=== PATIENT | female | born 1965 | race Caucasian/White ===

== ENCOUNTER 2016-10-02 23:53 | Emergency (ER) | payer OTHER, MEDICARE ==
[2016-10-03 00:15] VITALS: BP 183/95; BMI 34.2
[2016-10-03] MEDS ORDERED: TORADOL 60 MG VIAL IM ONE (01:11)
[2016-10-03] MEDS ORDERED: TORADOL 60 MG VIAL ONE (01:12)
--- NOTE | 2016-10-03 01:12 | DR.GENAD ---
HPI - PCP Primary Care Physician: kristy - Complaint/Symptoms Chief Complaint Doctors Comments: Patient admits to seeing her pcp today, medication given for BP, congestion and stomach, Rx called into pharmacy but has not gotten them. She has an appointment for tomorrow for blood work ordered by Dr Bowling. Chief Complaint:: high blood pressure( 154/110). headache, numbness in left arm , left leg, and tingling on left side of face. patient states," it happens often i have problems with the numbness," feels congested.fells like stomach is hard Self Treatment fo Chief Complaint: blood pressure medicines tonight. patient too two blood pressure pills earlier and too a half of tablet about an hour ago patient states " i think there coreg 12.5mg." - Source History Provided: Patient - Mode of Arrival Mode of Arrival: Ambulatory - Timing Onset of Chief Complaint: 09/15/16 PMH - PMH Past Medical History: Yes Past Medical History: Anxiety, Arthritis, Asthma, Depression, Diabetes, Dyslipidemia, GERD, Hypertension, PUD Past Medical History Comment: hernia Past Surgical History: Yes Surgical History: Cholecystectomy, [employer] TECH Surgery Past Surgical History Comment: high hernia repair, uterus removed,esophogus stretched x5 carpal tunnel surgery x2 stents in right wrist/hand - Family History History of Family Medical Conditions: Yes Family Medical History: Diabetes Mellitus, Cancer, [place], Coronary Artery Disease, Sudden Cardiac , Hypertension - Social History Does patient currently use any type of tobacco product: Yes Have you used tobacco products in the last 12 months: Yes Type of Tobacco Use: Cigarettes How many years tobacco product used: 30 Does any household member use tobacco: Yes Alcohol Use: None Do you use any recreational Drugs:: No Lives With: Significant Other Lives Where: Home - infectious screening In the last 2 months have you had wt loss of >10#?: NO Have you had fever, night sweats or hemotysis?: No Have you traveled outside the country in the last 6 months?: No Isolation: Standard ROS - Review of Systems Constitutional: negative: Diaphoresis Eyes: No Symptoms Reported ENTM: No Symptoms Reported Respiratoy: No Symptoms Reported Cardiovascular: No Symptoms Reported Gastrointestinal/Abdominal: No Symptoms Reported Genitourinary: No Symptoms Reported Neurological: No Symptoms Reported Musculoskeletal: No Symptoms Reported Integumentary: No Symptoms Reported Hematologic/Lymphatic: No Symptoms Reported Endocrine: No Symptoms Reported Psychiatric: No Symptoms Reported All Other Systems: Reviewed and Negative PE - Vital Signs Vitals: Temperature 98.0 F Pulse Rate 79 Respiratory Rate 20 Blood Pressure [Right Arm] 130/85 Blood Pressure 183/95 O2 Sat by Pulse Oximetry 96 - General General Appearance: Alert, In No Apparent Distress - Head Head Exam: Normal Inspection, Atraumatic - Eyes Eye exam: Normal Appearance, PERRL, EOMI - ENT ENT Exam: Normal Exam External Ear Exam: Normal External Inspection TM/Canal Exam: Bilateral Normal Nose Exam: Normal Nose Exam Mouth Exam: Normal Inspection Throat Exam: Normal Inspection - Neck Neck Exam: Normal Inspection - Chest Chest Inspection: Normal Inspection - Respiratory Respiratory Exam: Normal Lung Sounds Bilat Respiratory Exam: Bilateral Clear to Auscultation - Cardiovascular Cardiovascular Exam: Regular Rate - Abdominal Exam Abdominal Exam: Normal Inspection Abdominal Tenderness: negative: RUQ, RLQ, LUQ, LLQ, Epigastrium, Suprapubic, Diffuse, Mild, Moderate, Severe, Other - Extremities Extremities Exam: Normal Inspection - Back Back Exam: Normal Inspection, Full ROM - Neurologic Neurological Exam: Alert, Oriented X3, CN II-XII Intact - Psychiatric Psychiatric Exam: Normal Affect - Skin Skin Exam: Warm, Dry, Intact - Diagnosis Discharge Problem: Headache Qualifiers: Headache type: unspecified Headache chronicity pattern: chronic headache Intractability: not intractable Qualified Code(s): R51 - Headache - Discharge Plan Condition: Stable - Follow ups/Referrals Follow ups/Referrals: MARISA BOWLING [Primary Care Provider] - 3 days - Instructions
== END 2016-10-03 01:23 | disposition home or self-care (01) ==
LOC: ER 23:53
DX: R51 Headache (principal)
CPT/HCPCS: 96372; 99282; J1885

== ENCOUNTER → 2017-03-13 | Outpatient (CLI) | payer OTHER, MEDICARE ==
--- NOTE | 2017-03-16 15:06 | MRI ---
MRI thoracic spine without contrast Indication: Mid back pain Technique: Multiplanar, multi sequence imaging of the thoracic spine without IV contrast administrati on. Findings: There is no fracture spondylolisthesis of the thoracic spine. Bone marrow signal is preserv ed throughout the thoracic spine. No disc desiccation. No prevertebral or paraspinal soft tissue swel ling. There is mild disc osteophyte complex at C3-4 causing mild spinal canal stenosis without bony neural foraminal narrowing. There is mild disc osteophyte complex at T7-8 causing mild spinal canal stenosis without bony neural foraminal narrowing. There is mild disc osteophyte complex at T8-9 causes mild spinal canal stenosis without bony neural f emoral stenosis. At no level is there significant mass effect or compression on the thoracic cord. Impression: 1. Mild multilevel disc osteophyte complexes causes mild multilevel spinal canal narrowing; however, there is no significant bony neural foraminal stenosis or mass effect on the thoracic or. Normal sign al is noted throughout the thoracic cord. Reported By:
== END ==
LOC: RAD 08:28
PROVIDERS: ATTEND Specialist
DX: M54.6 Pain in thoracic spine (principal); M25.78 Osteophyte, vertebrae
CPT/HCPCS: 72146

== ENCOUNTER → 2017-04-02 | Outpatient (CLI) | payer OTHER, MEDICARE ==
--- NOTE | 2017-04-03 11:51 | MRI ---
MRI SPINE LUMBAR WITHOUT CONTRAST CLINICAL HISTORY: 52-year-old female with chronic low back pain. COMPARISON: None available at time dictation. Technique: Multiplanar, multisequence MRI images of the lumbar spine were obtained without the admin istration of contrast. FINDINGS: The most caudad, fully-formed intervertebral disc will be labeled L5-S1 for the purpose of this dictation. Straightening of the lumbar lordosis as imaged There is normal lumbar lordosis. Align ment is maintained. Large Schmorl's node superior endplate L1. Vertebral body heights are otherwise p reserved. Type 2 endplate changes throughout the imaged lumbar spine with mixed type 1 and type 2 end plate changes L1-L2 and L3-L4 anteriorly. Intervertebral disc height and signal are preserved. Cord s ignal is normal. The conus medullaris is normal in signal characteristics and morphology and terminat es at the L1-2 level. T11-T12: Imaged in the sagittal plane only without central canal or neural foraminal stenosis. T12-L1: No central canal or neural foraminal stenosis. L1-L2: Small symmetric disc bulge with mild facet arthropathy without central canal or neural foramin al stenosis. L2-L3: Moderate symmetric disc bulge and facet arthropathy without central canal or neural foraminal stenosis. L3-L4: Large asymmetric disc bulge with a left foraminal component and annular fissure at the foramin al level on the left with impingement and flattening of the ventral aspect of the exiting left L3 ner ve root. No central canal or significant neural foraminal stenosis otherwise. L4-L5: Large symmetric disc bulge with central annular fissure with severe facet arthropathy and mild thickening of the ligamentum flavum without central canal stenosis. Moderate to severe bilateral sub articular recess and moderate right with mild left neural foraminal stenosis. There is flattening of the ventral aspect of the exiting right L4 nerve root. L5-S1: Moderate symmetric disc bulge with severe facet arthropathy without central canal stenosis. Th ere is flattening of the ventral dorsal aspect of the exiting L5 nerve roots bilaterally. Paraspinous soft tissues are unremarkable. IMPRESSION: 1. Multilevel disc degeneration and spondyloarthropathy with areas of active degenerative disc change at multiple levels of neural foraminal stenosis with nerve root impingement/deformity, most severe L 4-S1. 2. See level by level descriptions above. Reported By:
--- NOTE | 2017-04-03 11:55 | MRI ---
MRI SPINE CERVICAL WITHOUT CONTRAST CLINICAL HISTORY: 52-year-old female with chronic neck pain. COMPARISON: None. Technique: Multiplanar, multisequence MRI images of the cervical spine were obtained without the adm inistration of intravenous contrast. FINDINGS: Straightening of the cervical lordosis as imaged. Alignment is maintained. The craniocervic al junction is normal. Vertebral body and disc space height are maintained. Vertebral marrow and inte rvertebral disc space signal are normal. Subtle patchy hyperintensity within the anterior cord at C5 -C6 with remaining cord signal normal. The visualized posterior fossa structures are normal. C2-C3: No central canal or neural foraminal stenosis. C3-C4: No central canal or neural foraminal stenosis. C4-C5: Shallow broad-based disc osteophyte complex without central canal or neural foraminal stenosis . C5-C6: Broad-based disc osteophyte complex with a right central component that impinges and flattens the right ventral cord with patchy hyperintense signal within the ventral cord without infarction. Ce ntral canal measures 8.3 mm. No significant neural foraminal stenosis. C6-C7: Broad-based disc osteophyte complex with a left central component that mildly flattens the lef t ventral cord. No cord signal change. Central canal measures 10.3 mm. No neural foraminal stenosis. C7-T1: No central canal or neural foraminal stenosis. Paraspinous soft tissues are unremarkable. IMPRESSION: 1. Multilevel disc degeneration and spondyloarthropathy most severe at C5-C6 with right ventral cord flattening and patchy hyperintensity consistent with edema/myelomalacia. 2. See level by level descriptions above. Reported By:
== END ==
LOC: RAD 12:58
PROVIDERS: ATTEND Psychiatry & Neurology Neurology
DX: M54.16 Radiculopathy, lumbar region (principal); M47.812 Spondylosis without myelopathy or radiculopathy, cervical region
CPT/HCPCS: 72141; 72148

== ENCOUNTER 2017-04-20 01:19 | Emergency (ER) | payer OTHER, MEDICARE ==
[2017-04-20 01:35] VITALS: BMI 32.8
--- NOTE | 2017-04-20 02:04 | DR.GENAD ---
HPI - PCP Primary Care Physician: DR. BOWLING - Complaint/Symptoms Chief Complaint Doctors Comments: Patient presents with complaint of feels like something, she also complains of left injuinal pain radiating down left leg. Patient states that she has gone through pain management clinic without relief of back and Chief Complaint:: HURTING IN CHEST UP TO THROAT ALONG ESOPHAGUS. PATIENT HAS HAD ESOPHAGUS STRETCHED IN THE PAST. FEELS LIKE SOMETHING IS STUCK IN HER THROAT. FRANCINE ALSO HURTING IN THE LEFT GROIN AREA Self Treatment fo Chief Complaint: THROAT AND MID CHEST STARTED YESTERDAY MORNING AND GROIN HAS BEEN HURTING FO ABOUT A WEEK - Source History Provided: Patient - Mode of Arrival Mode of Arrival: Ambulatory - Timing Onset of Chief Complaint: 04/19/17 PMH - PMH Past Medical History: Yes Past Medical History: Anxiety, Arthritis, Asthma, Depression, Diabetes, Dyslipidemia, GERD, Hypertension, PUD Past Medical History Comment: BACK TROUBLE Past Surgical History: Yes Surgical History: Cholecystectomy, [employer] Surgery, Tonsillectomy Past Surgical History Comment: STRETCHED ESOPHAGUS 6 TIMES, CARPAL TUNNEL SURGERY - Family History History of Family Medical Conditions: Yes Family Medical History: Diabetes Mellitus, Cancer, [place], Coronary Artery Disease, Sudden Cardiac , Hypertension - Social History Does patient currently use any type of tobacco product: Yes Have you used tobacco products in the last 12 months: Yes Type of Tobacco Use: Cigarettes How many years tobacco product used: 30 Does any household member use tobacco: Yes Alcohol Use: None Do you use any recreational Drugs:: No Lives With: Friend Lives Where: Home - infectious screening In the last 2 months have you had wt loss of >10#?: NO Have you had fever, night sweats or hemotysis?: No Have you traveled outside the country in the last 6 months?: No Isolation: Standard ROS - Review of Systems Constitutional: No Symptoms Reported Eyes: No Symptoms Reported ENTM: No Symptoms Reported Respiratoy: No Symptoms Reported Cardiovascular: No Symptoms Reported Gastrointestinal/Abdominal: No Symptoms Reported Genitourinary: No Symptoms Reported Neurological: No Symptoms Reported Musculoskeletal: Hip (left) Integumentary: No Symptoms Reported Hematologic/Lymphatic: No Symptoms Reported Endocrine: No Symptoms Reported Psychiatric: No Symptoms Reported All Other Systems: Reviewed and Negative PE - Vital Signs Vitals: Temperature 98.0 F Pulse Rate 72 Respiratory Rate 20 Blood Pressure [Right Arm] 130/85 Blood Pressure 125/71 O2 Sat by Pulse Oximetry 97 - General Limitations: No Limitations General Appearance: Alert, In No Apparent Distress - Head Head Exam: Normal Inspection, Atraumatic - Eyes Eye exam: Normal Appearance, PERRL, EOMI - ENT ENT Exam: Normal Exam, Normal Oropharynx External Ear Exam: Normal External Inspection TM/Canal Exam: Bilateral Normal Nose Exam: Normal Nose Exam Mouth Exam: Normal Inspection Throat Exam: Normal Inspection - Neck Neck Exam: Normal Inspection, Full ROM - Chest Chest Inspection: Normal Inspection, Symmetric Chest Wall Rise - Respiratory Respiratory Exam: Normal Lung Sounds Bilat Respiratory Exam: Bilateral Clear to Auscultation - Cardiovascular Cardiovascular Exam: Regular Rate, Normal Rhythm - Abdominal Exam Abdominal Exam: Normal Inspection, Normal Bowel Sounds Abdominal Tenderness: negative: RUQ, RLQ, LUQ, LLQ, Epigastrium, Suprapubic, Diffuse, Mild, Moderate, Severe, Other - Extremities Extremities Exam: Normal Inspection, Tenderness (left inguinal area) - Back Back Exam: Normal Inspection, Tenderness (lumbar spine) - Neurologic Neurological Exam: Alert, Oriented X3, CN II-XII Intact - Psychiatric Psychiatric Exam: Normal Affect, Normal Mood - Skin Skin Exam: Warm, Dry, Intact Course - Treatment Treatment: Reviewed previous MRI: generalized Disc bulge and facet arthropathy lumbar region (mild to moderate) ROR - Labs Reviewed Laboratory Results Reviewed?: Yes (strep positive) - Diagnosis Discharge Problem: Strep pharyngitis Chronic low back pain with sciatica Qualifiers: Back pain laterality: bilateral Sciatica laterality: sciatica of left side Qualified Code(s): M54.42 - Lumbago with sciatica, left side; G89.29 - Other chronic pain; G89.29 - Other chronic pain - Discharge Plan Condition: Stable - Follow ups/Referrals Follow ups/Referrals: MARISA BOWLING [Primary Care Provider] - 3 days - Instructions
--- NOTE | 2017-04-20 04:33 | RAD ---
PA and lateral Chest Indication: Dysphagia Comparison: 11/22/2015 Findings: The trachea is midline. The cardiac silhouette is unremarkable. The lungs are clear without focal i nfiltrate or effusion. The bony thorax is unremarkable. IMPRESSION: 1. No acute cardiopulmonary abnormality. Reported By:
[2017-04-20] MEDS ORDERED: LEVSIN/MAALOX/LIDOC VISC PO ONE (05:13)
[2017-04-20] MEDS ORDERED: LEVSIN/MAALOX/LIDOC VISC ONE (05:16)
[2017-04-20 05:33] VITALS: BP 114/72
== END 2017-04-20 05:33 | disposition home or self-care (01) ==
LOC: ER 01:19
DX: J02.0 Streptococcal pharyngitis (principal); M54.42 Lumbago with sciatica, left side; G89.29 Other chronic pain
CPT/HCPCS: 71046; 87880; 99282; 99283